=== PATIENT | male | born 1990 | race Two or more races ===

== ENCOUNTER 2022-12-02 08:58 | Emergency (ER) | payer OTHER ==
[~2022-12-02] VITALS: Ht 175.3 cm; Wt 72.6 kg
== END 2022-12-02 10:07 | disposition home or self-care (01) ==
LOC: ER 08:58
DX: H10.212 Acute toxic conjunctivitis, left eye (principal)

== ENCOUNTER 2024-02-18 10:29 | Emergency (ER) | payer OTHER ==
[~2024-02-18] VITALS: Ht 175.3 cm; Wt 72.6 kg
== END 2024-02-18 14:14 | disposition home or self-care (01) ==
LOC: ER 10:30
DX: R10.9 Unspecified abdominal pain (principal)